=== PATIENT | male | born 1950 | race Hispanic/Latino ===

== ENCOUNTER → 2019-10-28 | Outpatient (CLI) | payer MEDICARE | END | disposition home or self-care (01) | LOC: SHCH 15:03 | PROVIDERS: ATTEND Internal Medicine Cardiovascular Disease | DX: I87.2 Venous insufficiency (chronic) (peripheral) (principal) | CPT/HCPCS: 93970 ==

== ENCOUNTER → 2022-02-13 | Outpatient (CLI) | payer OTHER, MEDICARE | END | disposition home or self-care (01) | LOC: RAH 12:50 | PROVIDERS: ATTEND Urology | DX: C61 Malignant neoplasm of prostate (principal) | CPT/HCPCS: 78306; A9503 ==

== ENCOUNTER → 2022-02-14 | Outpatient (CLI) | payer OTHER, MEDICARE ==
[~2022-02-14] MED LIST: IOHEXOL 350 MG/ML 100ML INFUS..BTL IV ONE
== END | disposition home or self-care (01) ==
LOC: RAH 10:25
PROVIDERS: ATTEND Urology
DX: C61 Malignant neoplasm of prostate (principal); K42.9 Umbilical hernia without obstruction or gangrene
CPT/HCPCS: 74178; Q9967

== ENCOUNTER → 2022-03-28 | Outpatient (CLI) | payer OTHER, MEDICARE | END | disposition home or self-care (01) | LOC: SHCH 07:48 | PROVIDERS: ATTEND Internal Medicine Cardiovascular Disease | DX: I87.2 Venous insufficiency (chronic) (peripheral) (principal) | CPT/HCPCS: 93970 ==

== ENCOUNTER → 2024-03-06 | Outpatient (CLI) | payer OTHER, MEDICAID ==
--- NOTE | 2024-03-10 09:02 | HMCSR ---
APPROVED REPORT Laterality: Bilateral Indications r60.09, r07.9 Doppler Spectral Velocity Analysis PSV / EDVPSV / EDV ECA (R) 85 / cm/sECA (L) 89 / cm/s dICA (R) 107 / 19 cm/sdICA (L) 61 / 14 cm/s Coco (R) 84 / 17 cm/smICA (L) 66 / 20 cm/s pICA (R) 70 / 19 cm/spICA (L) 95 / 20 cm/s dCCA (R) 81 / 18 cm/sdCCA (L) 77 / 18 cm/s mCCA (R) 74 / 15 cm/smCCA (L) 97 / 21 cm/s pCCA (R) 74 / 13 cm/spCCA (L) 108 / 8 cm/s Vert (R) 39 / cm/sVert (L) 50 / cm/s Subl. (R) 147 / cm/sSubl. (L) 136 / cm/s ICA/CCA 1.32ICA/CCA 0.88 Technologist Impression Minimal plaque noted in the bilateral carotids, without hemodynamic significance. Bilateral vertebral arteries appear antegrade. Conclusion Minimal plaque noted in the bilateral carotids, without hemodynamic significance. Bilateral vertebral arteries appear antegrade. Conclusion Minimal plaque noted in the bilateral carotids, without hemodynamic significance. Bilateral vertebral arteries appear antegrade.
--- NOTE | 2024-03-10 13:58 | HMCSR ---
APPROVED REPORT EXAM: Two-dimensional and M-mode echocardiogram with Doppler and color Doppler. INDICATION ICD: R06.09 Other forms of dyspnea Chest Pain 2D Dimensions RVDd3.5 cmLVEF(%)61.0 (>50%)LVED Vol(simp.)125.0 mL IVSd0.8 (0.7-1.1cm)FS(%)33 %LVES Vol(simp.)59.0 mL LVDd4.7 (3.8-5.6cm)Ao Root(2D)3.5 (2.0-3.7cm)LVEF(%, simp.)52 % PWd0.8 (0.7-1.1cm)LVOT diam2.1 (1.8-2.4cm)LA ESV INDEX (BP)36.38 mL/m2 LVDs3.2 (2.5-4.0cm)IVC diam1.3 cm Deformation Strain Apical 4-18.2 % Apical 2-17.6 % Apical 3-18.8 % Global Strain-18.2 % Aortic Valve AoV Vmax1.3 m/Homero Peak GR6.6 mmHgLVOT Vmax1.1 m/s AoV VTI0.3 mAo Mean GR3.4 mmHgLVOT VTI0.24 m LUIS (VMAX)2.8 cm2Al P1/2T629 msAVA (VTI) 2.8 cm2 Mitral Valve MV E Vmax79.4 cm/sDECEL Qxiq216 ms MV A Vmax56.8 cm/sP 1/2 T53 ms E/A ratio1.4MVA (PHT)4.1 cm2 TDI E/E' Medial6.1E/E' Lateral6.2 Pulmonary Valve PV Vmax1.0 m/sPV VTI0.26 mPV Mean GR3 mmHg PV Peak GR4.3 mmHgPI End Maria Luz. Daryn 1.0 cm/s Tricuspid Valve TR Vmax2.5 m/sRAP (EST) 3 lfTpEHAB03.8 mmHg TR Peak GR24.8 mmHg Left Ventricle The left ventricle structure and function is normal. There is normal LV segmental wall motion. There is normal left ventricular wall thickness. LVEF is 50-55%. Left ventricular filling pattern is normal for age. Right Ventricle The right ventricle is normal size. The right ventricular systolic function is normal. Atria The left atrium is mildly dilated. The right atrium is mildly dilated. Aortic Valve Aortic valve is trileaflet. Aortic valve leaflets are sclerotic but open well. Mild aortic regurgitat ion. There is no aortic valvular stenosis. Mitral Valve Mitral valve leaflets are mildly sclerotic but open well. Mitral regurgitation is trace to mild. Ther e is no mitral valve stenosis. Tricuspid Valve The tricuspid valve leaflets appear normal. There is trace to mild tricuspid regurgitation. Pulmonic Valve Pulmonic valve is not well visualized. There is trace to mild valvular regurgitation. Great Vessels The aortic root is normal in size. The IVC is normal in size and collapses >50% with inspiration. Pericardium No pericardial effusion. Conclusion LVEF is 50-55%. There is normal LV segmental wall motion. Mild aortic regurgitation. The aortic root is normal in size. No pericardial effusion.
== END | disposition home or self-care (01) ==
LOC: SHCH 13:31
PROVIDERS: ATTEND Internal Medicine Cardiovascular Disease
DX: I08.8 Other rheumatic multiple valve diseases (principal); I65.23 Occlusion and stenosis of bilateral carotid arteries; R06.09 Other forms of dyspnea; R07.9 Chest pain, unspecified
CPT/HCPCS: 93306; 93356; 93880